=== PATIENT | male | born 1965 | race Caucasian/White ===

== ENCOUNTER 2020-03-11 09:23 | Emergency (ER) | payer OTHER ==
[~2020-03-11] VITALS: Ht 177.8 cm; Wt 93.1 kg
[2020-03-11 09:24] VITALS: BP 105/71
[2020-03-11] MEDS ORDERED: HYDROcodone/APAP 5/325 TABLET ONE (09:38)
--- NOTE | 2020-03-11 09:42 | NUR ---
CRACKED TOOTH FOR 3 WEEKS. MEDICATED FOR PAIN NOTED N MAR
[2020-03-11] MEDS ORDERED: HYDROcodone/APAP 5/325 TABLET PO ONE (10:00)
== END 2020-03-11 10:10 | disposition home or self-care (01) ==
LOC: ED 09:47
DX: K08.89 Other specified disorders of teeth and supporting structures (principal); H92.09 Otalgia, unspecified ear
CPT/HCPCS: 99283

== ENCOUNTER 2020-04-10 08:51 | Emergency (ER) | payer OTHER ==
[~2020-04-10] VITALS: Ht 177.8 cm; Wt 91.9 kg
[2020-04-10 09:04] VITALS: BP 102/69
[2020-04-10] MEDS ORDERED: KETOROLAC 30 MG/1 ML ONE (09:29)
[2020-04-10] MEDS ORDERED: KETOROLAC 30 MG/1 ML IM ONE (09:30)
== END 2020-04-10 10:07 | disposition home or self-care (01) ==
LOC: ED 09:39
DX: G89.29 Other chronic pain (principal); M79.671 Pain in right foot
CPT/HCPCS: 73630; 96372; 99283; J1885

== ENCOUNTER 2020-12-24 06:30 | Emergency (ER) | payer OTHER ==
[~2020-12-24] VITALS: Ht 177.8 cm; Wt 70.3 kg
--- NOTE | 2020-12-24 06:38 | NUR ---
PATIENT CHANGED INTO HOSPITAL GOWN, C-COLLAR IN PLACE UPON TRIAGE.
--- NOTE | 2020-12-24 06:55 | NUR ---
Report recieved from MAITE rn
[2020-12-24] MEDS ORDERED: MORPHINE SULFATE 4 MG/ML, 1ML IVPush PRN ×2 (07:00→10:00)
[2020-12-24] MEDS ORDERED: LIDOCAINE-MPF 1%, 5ML INFIL ONE (07:00)
[2020-12-24] MEDS ORDERED: ONDANSETRON 2MG/ML, 2ML IVPush ONE (07:00)
[2020-12-24] MEDS ORDERED: SODIUM CHLORIDE FLUSH 10ML SYR IVF ONE (07:00)
[2020-12-24] MEDS ORDERED: DIPH,PERTUSS(ACELL),TET VAC/PF 0.5 ML IM-VACC ONE ×2 (07:00→07:31)
[2020-12-24] MEDS ORDERED: ONDANSETRON 2MG/ML, 2ML ONE (07:06)
[2020-12-24] MEDS ORDERED: MORPHINE SULFATE 4 MG/ML, 1ML ONE ×2 (07:06→09:44)
[2020-12-24] MEDS ORDERED: LIDOCAINE-MPF 1%, 5ML ONE ×2 (07:21→09:00)
--- NOTE | 2020-12-24 07:45 | NUR ---
Mike NUÑEZ and EMT at bedside for wound care.
--- NOTE | 2020-12-24 08:56 | NUR ---
Mike NUÑEZ at bedside for wound care, poc discussed
[2020-12-24 09:50] VITALS: BP 127/81
--- NOTE | 2020-12-24 10:51 | NUR ---
DISCHARGE INSTRUCTIONS REVIEWED. LEFT WITH ALL BELONGINGS.
== END 2020-12-24 10:54 | disposition home or self-care (01) ==
LOC: ED 07:03
DX: S01.511A Laceration without foreign body of lip, initial encounter (principal); S01.112A Laceration without foreign body of left eyelid and periocular area, initial encounter; R51.9 Headache, unspecified; M54.2 Cervicalgia; W01.0XXA Fall on same level from slipping, tripping and stumbling without subsequent striking against object, initial encounter; Y93.79 Activity, other specified sports and athletics; Y92.410 Unspecified street and highway as the place of occurrence of the external cause; Y99.8 Other external cause status
CPT/HCPCS: 12013; 70450; 70486; 72125; 90471; 90715; 96374; 96375; 96376; 99285; J2270; J2405; 12052

== ENCOUNTER 2020-12-31 10:24 | Emergency (ER) | payer OTHER ==
[~2020-12-31] VITALS: Ht 180.3 cm; Wt 93.7 kg
[2020-12-31 10:40] VITALS: BP 126/81
== END 2020-12-31 11:38 | disposition home or self-care (01) ==
LOC: ED 10:47
DX: H10.022 Other mucopurulent conjunctivitis, left eye (principal); S05.32XD Ocular laceration without prolapse or loss of intraocular tissue, left eye, subsequent encounter; X58.XXXD Exposure to other specified factors, subsequent encounter
CPT/HCPCS: 99283